=== PATIENT | male | born 1995 | race Caucasian/White ===

== ENCOUNTER 2024-01-03 09:57 | Emergency (ER) | payer BC ==
[~2024-01-03] VITALS: Ht 167.6 cm; Wt 64.8 kg
[2024-01-03 10:43] LABS: BASOPHILS 0.5 % (0-2); EOSINOPHILS 0.4 % (0-6); LYMPHOCYTES 17.4 % (24-44); MCH 30.9 (27-36); MCHC 34.7 g/dl (30-36); MONOCYTES 7.6 % (0-12); NEUTROPHILS 74.1 % (39-80); PLATELET COUNT 244 K/uL (140-440); RBC 5.17 M/ul (4.3-5.7); RDW 13.4 (10.5-15.0)
[2024-01-03] MEDS ORDERED: PANTOPRAZOLE SODIUM 40 MG/10 ML VIAL IV ONE (10:45)
[2024-01-03] MEDS ORDERED: SODIUM CHLORIDE 0.9% 1,000 ML IV PRN (10:45)
[2024-01-03] MEDS ORDERED: ondansetron HCL 4 MG/2 ML VIAL IV ONE (10:45)
[2024-01-03 10:52] LABS: ALBUMIN/GLOBULIN RATIO 1.21 (1.1-2.4); ANION GAP 10.3 (7-21); BILIRUBIN, TOTAL 0.9 ng/dL (0.2-1.0); BUN/CREATININE RATIO 9.52 (6.0-28.6); CALCIUM 8.9 mg/dL (8.5-10.1); CREATININE, SERUM 1.05 mg/dL (0.70-1.30); MAGNESIUM 2.2 mg/dL (1.8-2.4); POTASSIUM 3.3 mmol/L (3.5-5.1); PROTEIN, TOTAL 7.3 g/dL (6.4-8.2)
[2024-01-03] MEDS ORDERED: LACTATED RINGER'S 1,000 ML IV ONE (11:00)
[2024-01-03 11:15] LABS: BILIRUBIN, URINE NEGATIVE (negative); BLOOD/HGB, URINE NEGATIVE (Negative); KETONE, URINE NEGATIVE (Negative); LEUK ESTERASE, URINE NEGATIVE (negative); NITRITE, URINE NEGATIVE (negative); PH, URINE 7.5 (5-7)
[2024-01-03] MEDS ORDERED: POTASSIUM CHLORIDE 10 MEQ TABCR PO ONE (12:45)
[2024-01-03 13:03] VITALS: BP 158/101
[2024-01-03] MEDS ORDERED: ONDANSETRON ODT8 MG PO (13:17)
[2024-01-03] MEDS ORDERED: COMPAZINE25 MG PR (13:17)
== END 2024-01-03 13:27 | disposition home or self-care (01) ==
LOC: ED 09:57
PROVIDERS: Emergency Medicine
DX: K52.9 Noninfective gastroenteritis and colitis, unspecified (principal); I10 Essential (primary) hypertension
CPT/HCPCS: 36415; 80053; 81003; 83690; 83735; 85025; A9270; C9113; J2405; J7121